=== PATIENT | male | born 1965 | race Caucasian/White ===

== ENCOUNTER 2017-08-21 18:02 | Inpatient (IN) | payer MEDICARE ==
[~2017-08-21] VITALS: Ht 185.4 cm; Wt 89.2 kg
[2017-08-21 18:05] VITALS: O2SAT 96
[2017-08-21] MEDS ORDERED: MIDAZOLAM HCL 5 MG/ML VIAL (1 ML) ONE (18:09)
[2017-08-21] MEDS ORDERED: ceFAZolin 2 GM PREMIX 50 ML ONE (18:09)
[2017-08-21] MEDS ORDERED: DIPHTH/TETANUS/ACEL PERTUSSIS (BOOSTER) 0.5 ML VIAL/PFS IM ONE (18:09)
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
[2017-08-21 18:38] LABS: AUTOMATED NEUTROPHIL # 18.8 TH/MM3 (1.8-7.7); BASOPHIL # 0.1 TH/MM3 (0-0.2); BASOPHIL % 0.6 % (0.0-2.0); EOSINOPHIL # 0.3 TH/MM3 (0-0.4); EOSINOPHIL % 1.3 % (0.0-4.0); HEMATOCRIT 44.7 % (39.0-51.0); LYMPH % 11.1 % (9.0-44.0); LYMPHOCYTE # 2.6 TH/MM3 (1.0-4.8); MEAN CELL VOLUME 89.2 FL (80.0-100.0); MEAN CORPUSCULAR HGB CONC 33.6 % (32.0-36.0); MEAN PLATELET VOLUME 7.1 FL (7.0-11.0); MONO % 6.3 % (0.0-8.0); MONOCYTE # 1.5 TH/MM3 (0-0.9); NEUT % 80.7 % (16.0-70.0); PLATELET COUNT 392 TH/MM3 (150-450); RED BLOOD COUNT 5.02 MIL/MM3 (4.50-5.90); RED CELL DISTRIBUTION WIDTH 13.4 % (11.6-17.2); WHITE BLOOD COUNT 23.3 TH/MM3 (4.0-11.0)
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
[2017-08-21 18:46] LABS: INTERNATIONAL NORMALIZED RATIO 1.1 RATIO
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
[2017-08-21] MEDS: SODIUM CHLOR 0.9% 1000 ML INJ 1,000 ML IV SCH (18:50)
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
[2017-08-21] MEDS ORDERED: SODIUM CHLORIDE 0.9% FLUSH 10 ML FLUSH IV FLUSH PRN (19:00)
[2017-08-21] MEDS ORDERED: NALOXONE HCL 0.4 MG/ML AMP IV PUSH PRN (19:00)
[2017-08-21] MEDS ORDERED: Post-op Orders (for Pharmacy) XX ONE (19:00)
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
[2017-08-21] MEDS ORDERED: IOHEXOL 350 MG/ML 10 ML VIAL (for RAD DIAG) IVCONTRAST ONE (19:48)
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
[2017-08-21 20:00] VITALS: BP 161/83; PULSE 109; RESP 24; TEMP 100.6; O2SAT 94
[2017-08-21] MEDS ORDERED: sotalol (20:20)
[2017-08-21] MEDS: PANTOPRAZOLE SODIUM 40 MG VIAL IV PUSH SCH (20:25)
[2017-08-21] MEDS: MORPHINE SULFATE 2 MG/ML SYRINGE IV PUSH PRN ×2 (20:25→22:59)
[2017-08-21] MEDS: SODIUM CHLORIDE 0.9% FLUSH 10 ML FLUSH IV FLUSH SCH (21:00)
[2017-08-21] MEDS ORDERED: ALPR.25 PO (21:20)
[2017-08-21] MEDS: ACETAMINOPHEN/HYDROcodone 325 MG/5 MG TAB PO PRN (21:49)
[2017-08-21 22:00] VITALS: PULSE 53
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
[2017-08-21] MEDS ORDERED: ASPI-516 CHEW (23:20)
[2017-08-21] MEDS ORDERED: SOTA120T PO (23:20)
[2017-08-22] VITALS (11 sets, daily range): BP systolic 136–186; BP diastolic 82–88; PULSE 75–108; RESP 15–23; TEMP 98–101.6; O2SAT 92–98
[2017-08-22] MEDS ORDERED: SILD20TA11 PO (01:14)
[2017-08-22] MEDS: ACETAMINOPHEN/HYDROcodone 325 MG/5 MG TAB PO PRN (02:18)
[2017-08-22] MEDS ORDERED: ACETAMINOPHEN 1000 MG/100 ML 100 ML IV PRN (03:00)
[2017-08-22 04:19] LABS: AUTOMATED NEUTROPHIL # 11.3 TH/MM3 (1.8-7.7); BASOPHIL # 0.1 TH/MM3 (0-0.2); BASOPHIL % 0.4 % (0.0-2.0); EOSINOPHIL # 0.1 TH/MM3 (0-0.4); EOSINOPHIL % 0.5 % (0.0-4.0); HEMOGLOBIN 14.6 GM/DL (13.0-17.0); LYMPH % 12.5 % (9.0-44.0); LYMPHOCYTE # 1.8 TH/MM3 (1.0-4.8); MEAN CORPUSCULAR HEMOGLOBIN 29.5 PG (27.0-34.0); MEAN CORPUSCULAR HGB CONC 33.9 % (32.0-36.0); MEAN PLATELET VOLUME 7.5 FL (7.0-11.0); MONO % 9.4 % (0.0-8.0); MONOCYTE # 1.4 TH/MM3 (0-0.9); NEUT % 77.2 % (16.0-70.0); PLATELET COUNT 340 TH/MM3 (150-450); RED BLOOD COUNT 4.94 MIL/MM3 (4.50-5.90); RED CELL DISTRIBUTION WIDTH 13.1 % (11.6-17.2); WHITE BLOOD COUNT 14.6 TH/MM3 (4.0-11.0)
[2017-08-22 04:41] LABS: ALBUMIN 2.6 GM/DL (3.4-5.0); BICARBONATE 25.2 MEQ/L (21.0-32.0); CALCIUM 7.7 MG/DL (8.5-10.1); CREATININE 0.76 MG/DL (0.60-1.30); DIRECT BILIRUBIN ADULT 0.2 MG/DL (0.0-0.2)
[2017-08-22 04:42] LABS: INDIRECT BILIRUBIN 0.6 MG/DL (0.0-0.8); TOTAL BILIRUBIN ADULT 0.8 MG/DL (0.2-1.0); TOTAL PROTEIN 6.4 GM/DL (6.4-8.2)
[2017-08-22] MEDS: MORPHINE SULFATE 2 MG/ML SYRINGE IV PUSH PRN (05:57)
[2017-08-22] MEDS ORDERED: ACETAMINOPHEN 650 MG/20.3 ML UDC PO PRN (07:27)
[2017-08-22] MEDS ORDERED: PILL SPLITTER OTHER PRN (07:30)
[2017-08-22] MEDS: METHOCARBAMOL 500 MG TAB PO SCH ×3 (08:13→20:44)
[2017-08-22] MEDS: SODIUM CHLORIDE 0.9% FLUSH 10 ML FLUSH IV FLUSH SCH ×2 (08:14→20:44)
[2017-08-22] MEDS: ASPIRIN 81 MG CHEW TAB CHEW SCH (08:14)
[2017-08-22] MEDS: SOTALOL HCL 80 MG TAB PO SCH ×2 (08:14→20:43)
[2017-08-22] MEDS: DOCUSATE SODIUM 50 MG/SENNA 8.6 MG TAB PO SCH ×2 (08:14→20:43)
[2017-08-22] MEDS: ACETAMINOPHEN 1000 MG/100 ML 100 ML IV SCH ×3 (08:14→20:44)
[2017-08-22] MEDS: BACITRACIN TOP OINT 15 GM TUBE TOP SCH ×2 (08:15→21:00)
[2017-08-22] MEDS: MORPHINE SULFATE 4 MG/ML INJ IV PUSH PRN ×4 (08:43→22:51)
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
[2017-08-22] MEDS: SODIUM CHLOR 0.9% 1000 ML INJ 1,000 ML IV SCH ×2 (11:45→14:50)
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
--- NOTE | 2017-08-22 18:04 | EKG ---
Date Performed: 08/22/2017 Time Performed: 11:54:32 PTAGE: 51 years EKG: SINUS TACHYCARDIA WITH OCCASIONAL VENTRICULAR PREMATURE COMPLEXES RIGHT BUNDLE BRANCH BLOCK ABNORMAL ECG NO PREVIOUS TRACING DOCTOR: Rupesh Polanco Interpretating Date/Time 08/22/2017 18:03:13
[2017-08-22] MEDS: ALPRAZolam 0.25 MG TAB PO PRN (18:08)
[2017-08-22] MEDS: PANTOPRAZOLE SODIUM 40 MG VIAL IV PUSH SCH (18:08)
[2017-08-22] MEDS ORDERED: POVIDONE IODINE 5% (ANTISEPSIS KIT) 4 APPLICATIONS EACH NARE PRN (22:30)
[2017-08-22] MEDS ORDERED: SODIUM CHLORID 0.9% 500 ML IV PRN (22:30)
[2017-08-22] MEDS ORDERED: LACTATED RINGER'S 1000 ML IV PRN (22:30)
[2017-08-22] MEDS ORDERED: CHLORHEXIDINE GLUCONATE 2 % 1 PACK (2 CLOTHS) TOPICAL PRN (22:30)
[2017-08-23] VITALS: BP 146/65; PULSE 76; RESP 18; TEMP 98.2; O2SAT 95
[2017-08-23] MEDS: ALPRAZolam 0.25 MG TAB PO PRN ×2 (01:26→23:09)
[2017-08-23] MEDS: MORPHINE SULFATE 4 MG/ML INJ IV PUSH PRN ×5 (01:55→20:37)
[2017-08-23] MEDS: ACETAMINOPHEN 1000 MG/100 ML 100 ML IV SCH (01:55)
[2017-08-23 04:00] VITALS: BP 127/64; PULSE 69; RESP 18; TEMP 97.3; O2SAT 96
[2017-08-23] MEDS: METHOCARBAMOL 500 MG TAB PO SCH ×3 (06:00→20:37)
[2017-08-23 08:00] VITALS: BP 153/72; PULSE 79; RESP 16; TEMP 98.3; O2SAT 97
[2017-08-23] MEDS: ASPIRIN 81 MG CHEW TAB CHEW SCH (08:49)
[2017-08-23] MEDS: SOTALOL HCL 80 MG TAB PO SCH ×2 (08:56→20:37)
[2017-08-23] MEDS: THIAMINE HCL 100 MG TAB PO SCH (09:00)
[2017-08-23] MEDS: BACITRACIN TOP OINT 15 GM TUBE TOP SCH (09:00)
[2017-08-23] MEDS: DOCUSATE SODIUM 50 MG/SENNA 8.6 MG TAB PO SCH ×2 (09:00→20:37)
[2017-08-23] MEDS: MULTIVITAMIN TAB PO SCH (09:00)
[2017-08-23] MEDS: FOLIC ACID 1 MG TAB PO SCH (09:00)
[2017-08-23] MEDS ORDERED: ARTIFICIAL TEARS OPTH OINT 3.5 APPLIC/3.5 GM TUBO ONE (09:29)
[2017-08-23] MEDS ORDERED: LIDOCAINE 1%/EPINEPHrine 1:100,000 SOLN 20 ML VIAL ONE (10:09)
[2017-08-23] MEDS ORDERED: POVIDONE IODINE 10% OINT 30 GM TUBE ONE (10:55)
--- NOTE | 2017-08-23 11:15 | HHI.PR ---
Immediate Post Op Note Procedure Date: August 23, 2017 Pre Op Diagnosis: (1) Laceration of ear, external, complicated Post Op Diagnosis: (1) Laceration of ear, external, complicated Surgeon: Kiersten Potter Floor Covering Printer Assistant(s): None Procedure: Excisional debridement of both external ears with complex closure, 10 cm on right and 5 cm on left. Anesthesia: General Drains: None Patient to: PACU Patient Condition: Good Date/Time of Procedure: SEE SURGICAL CARE RECORD Kiersten Potter MD August 23, 2017 11:15
[2017-08-23] MEDS ORDERED: MIDAZOLAM HCL 2 MG/2 ML VIAL ONE (11:47)
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
[2017-08-23] MEDS ORDERED: ceFAZolin INJ 1,000 MG VIAL IV ONE (12:00)
[2017-08-23] MEDS ORDERED: LACTATED RINGER'S 1000 ML INJ 2,000 ML IV ONE (12:00)
[2017-08-23] MEDS ORDERED: NEOSTIGMINE 5 MG/5 ML SYRINGE IV PUSH ONE (12:00)
[2017-08-23] MEDS ORDERED: LIDOCAINE HCL 1% PF 5 ML SYRINGE OTHER ONE (12:00)
[2017-08-23] MEDS ORDERED: DEXAMETHASONE SOD PHOS 4 MG/ML VIAL IV ONE (12:00)
[2017-08-23] MEDS ORDERED: PHENYLEPH/NS 1000 MCG/10 ML SYR IV ONE (12:00)
[2017-08-23] MEDS ORDERED: PROPOFOL 200 MG/20 ML AMP IV ONE (12:00)
[2017-08-23] MEDS ORDERED: ONDANSETRON HCL 4 MG/2 ML VIAL IV ONE (12:00)
[2017-08-23] MEDS ORDERED: GLYCOPYRROLATE 1 MG/5 ML SYRINGE IV PUSH ONE (12:00)
[2017-08-23] MEDS ORDERED: ROCURONIUM INJ 50 MG/5 ML SYRINGE IV PUSH ONE (12:00)
[2017-08-23] MEDS ORDERED: *morphine SULFATE 8 MG/ML PERIprocedure ONLY ONE (12:02)
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
[2017-08-23 12:41] VITALS: BP 118/74; PULSE 62; RESP 18; TEMP 98.6; O2SAT 92
--- NOTE | 2017-08-23 12:46 | RADRPT ---
EXAM DATE/TIME: 08/23/2017 10:54 [facility] COMPARISON: No previous studies available for comparison. INDICATIONS : ORIF left ankle. MEDICAL HISTORY : None. SURGICAL HISTORY : None. ENCOUNTER: Subsequent ACUITY: 3 days PAIN SCORE: Non-responsive. LOCATION: Left Ankle. FINDINGS: Plate is seen bridging fibular fracture. Cortical screws medial malleolus. Anatomic alignment. CONCLUSION: Anatomic alignment following ORIF ankle fracture. Marlon Ortega MD FACR on August 23, 2017 at 12:44 Board Certified Radiologist. This report was verified electronically.
[2017-08-23] MEDS: SODIUM CHLORIDE 0.9% FLUSH 10 ML FLUSH IV FLUSH SCH ×2 (13:31→20:37)
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
--- NOTE | 2017-08-23 16:38 | RADRPT ---
EXAM DATE/TIME: 08/23/2017 16:15 [place] COMPARISON: CT THORAX W CONTRAST, August 21, 2017, 18:31. INDICATIONS : Shoulder pain from previous SNF, 3 days ago. MEDICAL HISTORY : None. SURGICAL HISTORY : clavicle ORIF. ENCOUNTER: Subsequent ACUITY: 3 days PAIN SCORE: 5/10 LOCATION: Right shoulder FINDINGS: Previous right clavicle fracture. Anatomic alignment. Humerus is intact. 5.5 center mass right upp er lobe consistent with neoplasm. CONCLUSION: Negative for fracture. Marlon Ortega MD FACR on August 23, 2017 at 16:34 Board Certified Radiologist. This report was verified electronically.
[2017-08-23] MEDS: TAMSULOSIN HCL 0.4 MG CAP PO SCH (17:10)
[2017-08-23 20:03] VITALS: BP 135/79; PULSE 89; RESP 16; TEMP 98.1; O2SAT 92
[2017-08-23] MEDS: PANTOPRAZOLE SODIUM 40 MG VIAL IV PUSH SCH (20:08)
[2017-08-24] VITALS (7 sets, daily range): BP systolic 110–147; BP diastolic 61–79; PULSE 67–86; RESP 16–18; TEMP 97.7–98.6; O2SAT 93–96
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
[2017-08-24] MEDS: MORPHINE SULFATE 4 MG/ML INJ IV PUSH PRN ×3 (02:27→17:00)
[2017-08-24 04:09] LABS: AUTOMATED NEUTROPHIL # 14.1 TH/MM3 (1.8-7.7); BASOPHIL # 0.1 TH/MM3 (0-0.2); BASOPHIL % 0.5 % (0.0-2.0); HEMATOCRIT 40.5 % (39.0-51.0); HEMOGLOBIN 13.6 GM/DL (13.0-17.0); LYMPH % 6.4 % (9.0-44.0); MEAN CELL VOLUME 88.1 FL (80.0-100.0); MEAN CORPUSCULAR HEMOGLOBIN 29.5 PG (27.0-34.0); MEAN CORPUSCULAR HGB CONC 33.5 % (32.0-36.0); MEAN PLATELET VOLUME 7.5 FL (7.0-11.0); MONO % 6.1 % (0.0-8.0); PLATELET COUNT 349 TH/MM3 (150-450); RED CELL DISTRIBUTION WIDTH 13.1 % (11.6-17.2); WHITE BLOOD COUNT 16.2 TH/MM3 (4.0-11.0)
[2017-08-24] MEDS: METHOCARBAMOL 500 MG TAB PO SCH ×3 (04:26→21:24)
[2017-08-24] MEDS: ALPRAZolam 0.25 MG TAB PO PRN (04:26)
[2017-08-24 05:03] LABS: BICARBONATE 29.1 MEQ/L (21.0-32.0); CALCIUM 7.9 MG/DL (8.5-10.1); CREATININE 0.78 MG/DL (0.60-1.30)
--- NOTE | 2017-08-24 07:57 | PD.ORT.PN ---
Subjective Post Op Day #: 1 Pain Scale: 7 Subjective Remarks Left ankle pain appears to be controlled complaining of right shoulder pain seen bedside with mom Objective Vitals Vital Signs Date Time Temp Pulse Resp B/P (MAP) Pulse Ox O2 Delivery O2 Flow Rate FiO2 08/24/17 07:35 97.7 67 18 142/68 (92) 96 08/24/17 04:00 97.7 80 16 144/65 (91) 95 08/24/17 00:30 97.9 75 17 110/61 (77) 93 08/23/17 20:03 98.1 89 16 135/79 (97) 92 08/23/17 18:55 Room Air 08/23/17 12:41 98.6 62 18 118/74 (89) 92 08/23/17 12:30 98.5 71 16 120/73 (89) 95 Nasal Cannula 3 08/23/17 12:15 70 15 123/71 (88) 94 Nasal Cannula 3 08/23/17 12:00 69 15 128/70 (89) 93 Nasal Cannula 3 08/23/17 11:45 68 16 138/72 (94) 94 Nasal Cannula 3 08/23/17 11:40 99.0 79 18 142/73 (96) 100 Simple Mask 8 08/23/17 08:00 98.3 79 16 153/72 (99) 97 I/O 08/23/17 08/23/17 08/23/17 08/24/17 08/24/17 08/24/17 07:00 15:00 23:00 07:00 15:00 23:00 Intake Total 100 ml 2250 ml 720 ml Output Total 1000 ml 3500 ml 1800 ml Balance -900 ml -1250 ml -1080 ml Intake Oral 0 ml 250 ml 720 ml IV Total 100 ml Other 2000 ml Output Urine Total 1000 ml 3475 ml 1800 ml Estimated Blood Loss 25 ml # Bowel Movements 0 0 Result Diagram: 08/24/17 0354 08/24/17 0354 Other Results Last 72 hours Impressions Shoulder X-Ray 08/23/17 0000 Signed Impressions: Service Date/Time: Wednesday, August 23, 2017 16:15 - CONCLUSION: Negative for fracture. Marlon Ortega MD FACR Ankle X-Ray 08/23/17 0000 Signed Impressions: Service Date/Time: Wednesday, August 23, 2017 10:54 - CONCLUSION: Anatomic alignment following ORIF ankle fracture. Marlon Ortega MD FACR Thoracic Spine CT 08/21/171821 Signed Impressions: Service Date/Time: Monday, August 21, 2017 18:31 - CONCLUSION: 1. Right upper lobe pulmonary mass described in the CT of the thorax report. 2. No fracture or dislocation involving the thoracic spine. Prince Felipe Jr., MD Pelvis X-Ray 08/21/171821 Signed Impressions: Service Date/Time: Monday, August 21, 2017 18:16 - CONCLUSION: 1. Questionable left femoral neck fracture. See the CT of the abdomen and pelvis. 2. Right hip prosthesis. Prince Felipe Jr., MD Maxillofacial CT 08/21/171821 Signed Impressions: Service Date/Time: Monday, August 21, 2017 18:23 - CONCLUSION: 1. Left frontal and right orbital soft tissue swelling. 2. Radiopaque foreign body involving the left frontal soft tissues. 3. Old trauma to the mandible. Prince Felipe Jr., MD Lumbar Spine CT 08/21/171821 Signed Impressions: Service Date/Time: Monday, August 21, 2017 18:31 - CONCLUSION: 1. No fracture or dislocation. Prince Felipe Jr., MD Head CT 08/21/171821 Signed Impressions: Service Date/Time: Monday, August 21, 2017 18:23 - CONCLUSION: 1. See the CT of the facial bones report separately. 2. No acute intracranial abnormality. Prince Felipe Jr., MD Chest X-Ray 08/21/171821 Signed Impressions: Service Date/Time: Monday, August 21, 2017 18:16 - CONCLUSION: 1. 9.5 cm masslike density within the right upper lobe. CT of the thorax is needed to further evaluate. Prince Felipe Jr., MD Chest CT 08/21/171821 Signed Impressions: Service Date/Time: Monday, August 21, 2017 18:31 - CONCLUSION: 1. Right upper lobe pulmonary mass worrisome for a primary bronchogenic carcinoma. 2. No CT evidence to suggest acute trauma. Prince Felipe Jr., MD Cervical Spine CT 08/21/171821 Signed Impressions: Service Date/Time: Monday, August 21, 2017 18:23 - CONCLUSION: 1. No fracture or dislocation. 2. Degenerative changes as detailed above. Prince Felipe Jr., MD Abdomen/Pelvis CT 08/21/17 1822 Signed Impressions: Service Date/Time: Monday, August 21, 2017 18:31 - CONCLUSION: No acute disease. Prince Felipe Jr., MD Laboratory Tests Test 08/24/17 03:54 White Blood Count 16.2 TH/MM3 Neutrophils (%) (Auto) 87.0 % Lymphocytes (%) (Auto) 6.4 % Neutrophils # (Auto) 14.1 TH/MM3 Monocytes # (Auto) 1.0 TH/MM3 Random Glucose 170 MG/DL Calcium Level 7.9 MG/DL Objective Remarks Alert and oriented male nonlabored respirations bandages of the upper extremities. Left lower extremity: Splint intact no strikethrough, capillary fill time to digits within normal limits, foot is warm, calf nontender nondistended, sensation intact to the digits, splint intact ankle with good alignment Right lower extremity: No complaints no swelling within normal limits Assessment & Plan Ortho Post Op Day #: 1 Problem List: (1) Bimalleolar ankle fracture ICD Codes: S82.843A - Displaced bimalleolar fracture of unspecified lower leg, initial encounter for closed fracture Status: Acute Qualifiers: Qualified Codes: S82.842D - Displaced bimalleolar fracture of left lower leg , subsequent encounter for closed fracture with routine healing Assessment and Plan Postop per Dr. Remy. Pain appears to be well controlled. Reviewed notes. Okay to proceed with Lovenox once cleared after biopsy. Will change bandage tomorrow, wound check. Moseley remains in. Will leave trauma team to evaluate further right shoulder if needed. Okay to start PT-nonweightbearing left lower extremity once upper extremity cleared per trauma Onel Hooks DPM August 24, 2017 07:57
[2017-08-24] MEDS: SOTALOL HCL 80 MG TAB PO SCH ×2 (08:08→21:25)
[2017-08-24] MEDS: TAMSULOSIN HCL 0.4 MG CAP PO SCH (08:08)
[2017-08-24] MEDS: FOLIC ACID 1 MG TAB PO SCH (08:08)
[2017-08-24] MEDS: DOCUSATE SODIUM 50 MG/SENNA 8.6 MG TAB PO SCH ×2 (08:08→21:24)
[2017-08-24] MEDS: THIAMINE HCL 100 MG TAB PO SCH (08:09)
[2017-08-24] MEDS: MULTIVITAMIN TAB PO SCH (08:09)
[2017-08-24] MEDS: SODIUM CHLORIDE 0.9% FLUSH 10 ML FLUSH IV FLUSH SCH ×2 (08:13→21:23)
[2017-08-24] MEDS: BACITRACIN TOP OINT 15 GM TUBE TOP SCH ×2 (08:14→21:33)
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
[2017-08-24] MEDS: ceFAZolin 2 GM PREMIX 50 ML IV SCH ×2 (10:53→17:02)
[2017-08-24] MEDS: MAGNESIUM HYDROXIDE SUSP 30 ML CUP PO SCH ×2 (10:53→21:24)
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
[2017-08-24] MEDS ORDERED: LORazepam 2 MG/ML VIAL ONE (13:29)
--- NOTE | 2017-08-24 14:44 | PD.RAD ---
Post CT Procedure Prog Note Pre Procedure Diagnosis: (1) Mass of upper lobe of right lung Post Procedure Diagnosis: (1) Mass of upper lobe of right lung Procedure Date: August 24, 2017 Supervising Radiologist: Ian Ortega Estimated blood loss: none Anesthesia: Local, Analgesia Plan of Activity Patient to Unit: Nursing Unit Patient Condition: Fair Additional Comments: CT guided right lung biopsy completed. 3 20 ga core samples obtained. Tiny (1mm) localized area of pneumothorax on follow up CT CXR pending for 1500hours See PACS Report for procedural detail/treatment Ian Ortega MD August 24, 2017 14:44
[2017-08-24] MEDS ORDERED: oxyCODONE/ACETAMINOPHEN 5 MG/325 MG TAB PO PRN (14:45)
[2017-08-24] MEDS ORDERED: LIDOCAINE HCL 1% 20 ML VIAL SQ ONE (15:04)
--- NOTE | 2017-08-24 15:36 | RADRPT ---
EXAM DATE/TIME: 08/24/2017 14:18 [facility] COMPARISON: CT THORAX W CONTRAST, August 21, 2017, 18:31. INDICATIONS : Right upper lobe lung mass BIOPSY SITE: Right Lung MEDICATION(S): 1.) 100 mcg fentanyl (Sublimaze) IV 2.) 2 mg lorazepam (Ativan) DEVICE(S): 1.) 20 gauge Temno core biopsy needle MEDICAL HISTORY : Hypertension. SURGICAL HISTORY : None. ENCOUNTER: Initial ACUITY: 1 day PAIN SCORE: 0/10 LOCATION: Right Lung A total of three core specimen(s) were obtained and sent to the laboratory for pathologic evaluation. PROCEDURE: 1. CT guided lung biopsy. 3. EKG and oximetry remained stable throughout the procedure. Prior to the procedure informed consent was obtained. Any appropriate prior imaging studies were rev iewed. Using automated exposure control and adjustment of the mA and/or kV according to patient size, radiation dose was kept as low as reasonably achievable to obtain optimal diagnostic quality images. DICOM format image data is available electronically for review and comparison. The site was prepped in a sterile fashion. Full sterile technique was used, including cap, mask, dio rile gloves and gown and a large sterile sheet. Hand hygiene and 2% chlorhexidine and/or betadine/al cohol prep was utilized per protocol for cutaneous antisepsis. The skin and subcutaneous tissues wer e infiltrated with local anesthetic solution. With CT guidance the previously identified right apical mass was localized. A 19 gauge cannula was ad vanced through the skin and into the right apical mass. A total of 3 core biopsies were performed wit h a 20 gauge Temno biopsy gun. Position was confirmed within the lesion. Follow-up CT scan reveals a tiny localized pneumothorax measuring only approximately 1-2 mm in size. Chest x-ray is pending. Conscious sedation was performed with the prescribed dosages and duration as above in the presence of an independent trained radiology nurse to assist in the monitoring of the patient. EKG and oximetry remained stable throughout the procedure. The patient tolerated the procedure well and there were no complications. The patient was sent to Radiology Outpatient Unit in stable condition. CONCLUSION: Uncomplicated CT guided biopsy. Ian Ortega MD on August 24, 2017 at 15:32 Board Certified Radiologist. This report was verified electronically.
--- NOTE | 2017-08-24 16:11 | RADRPT ---
EXAM DATE/TIME: 08/24/2017 15:53 [facility] COMPARISON: CT NEEDLE BIOPSY LUNG, RIGHT, August 24, 2017, 14:18. INDICATIONS : Post right lung biopsy MEDICAL HISTORY : Right lung mass SURGICAL HISTORY : ENCOUNTER: Initial ACUITY: 1 day PAIN SCORE: 0/10 LOCATION: Right chest FINDINGS: A single frontal expiratory view of the chest was performed. Redemonstration of a large right upper l obe lung mass. Stable subtle localized pneumothorax. The cardio-mediastinal contours and bronchopulmonary markings are unremarkable for an expiratory exam . Osseous structures are intact. CONCLUSION: 1. Stable subtle localized pneumothorax status post biopsy of large right upper lobe lung mass. Felix Traore MD on August 24, 2017 at 16:05 Board Certified Radiologist. This report was verified electronically.
[2017-08-24] MEDS: PANTOPRAZOLE SODIUM 40 MG VIAL IV PUSH SCH (21:31)
[2017-08-25 00:37] VITALS: BP 122/69; PULSE 66; RESP 18; TEMP 98.3; O2SAT 96
[2017-08-25] MEDS: ceFAZolin 2 GM PREMIX 50 ML IV SCH (01:00)
[2017-08-25 04:54] VITALS: BP 129/78; PULSE 66; RESP 18; TEMP 98.4; O2SAT 96
[2017-08-25] MEDS: METHOCARBAMOL 500 MG TAB PO SCH ×3 (04:57→21:53)
[2017-08-25 07:59] VITALS: BP 131/80; PULSE 67; RESP 17; TEMP 97.4; O2SAT 94
[2017-08-25] MEDS: MAGNESIUM HYDROXIDE SUSP 30 ML CUP PO SCH ×3 (09:00→20:22)
[2017-08-25] MEDS: DOCUSATE SODIUM 50 MG/SENNA 8.6 MG TAB PO SCH ×3 (09:00→20:22)
[2017-08-25] MEDS: MULTIVITAMIN TAB PO SCH (09:02)
[2017-08-25] MEDS: THIAMINE HCL 100 MG TAB PO SCH (09:02)
[2017-08-25] MEDS: TAMSULOSIN HCL 0.4 MG CAP PO SCH (09:02)
[2017-08-25] MEDS: FOLIC ACID 1 MG TAB PO SCH (09:02)
[2017-08-25] MEDS: SOTALOL HCL 80 MG TAB PO SCH ×2 (09:02→20:22)
[2017-08-25] MEDS: BACITRACIN TOP OINT 15 GM TUBE TOP SCH ×2 (09:03→20:26)
[2017-08-25] MEDS: SODIUM CHLORIDE 0.9% FLUSH 10 ML FLUSH IV FLUSH SCH ×2 (09:03→20:26)
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
--- NOTE | 2017-08-25 11:42 | ECHRPT ---
Indication: a fib CONCLUSIONS Trace mitral valve regurgitation. There is mild tricuspid valve regurgitation. The estimated pulmonary arterial pressure is 44.3 mmHg. Trace mitral valve regurgitation. There is mild tricuspid valve regurgitation. The estimated pulmonary arterial pressure is 44.3 mmHg. The inferior vena cava is dilated. BP: 142 / 68 HR: 67 Rhythm: MEASUREMENTS (Male / Female) Normal Values Technical Quality: 2D ECHO LV Diastolic Diameter PLAX 4.4 cm 4.2 - 5.9 / 3.9 - 5.3 cm LV Systolic Diameter PLAX 3.1 cm IVS Diastolic Thickness 1.2 cm 0.6 - 1.0 / 0.6 - 0.9 cm LVPW Diastolic Thickness 1.3 cm 0.6 - 1.0 / 0.6 - 0.9 cm LV Relative Wall Thickness 0.6 RV Internal Dim ED PLAX 2.6 cm M-MODE Aortic Root Diameter MM 3.6 cm LA Systolic Diameter MM 3.5 cm LA Ao Ratio MM 1.0 AV Cusp Separation MM 2.1 cm DOPPLER Mitral E Point Velocity 103.0 cm/s Mitral A Point Velocity 72.4 cm/s Mitral E to A Ratio 1.4 LV E' Lateral Velocity 14.9 cm/s Mitral E to LV E' Lateral Ratio 6.9 TR Peak Velocity 293.0 cm/s TR Peak Gradient 34.3 mmHg Right Atrial Pressure 10.0 mmHg Pulmonary Artery Systolic Pressu 44.3 mmHg Right Ventricular Systolic Press 44.3 mmHg FINDINGS LEFT VENTRICLE Normal left ventricular size and wall thickness. The left ventricular systolic function is normal wi th an estimated ejection fraction in the range of 60-65%. Left ventricular diastolic function parameters a re normal. RIGHT VENTRICLE Normal right ventricular size and systolic function. LEFT ATRIUM The left atrial size is normal. RIGHT ATRIUM The right atrial size is normal. ATRIAL SEPTUM Normal atrial septal thickness without atrial level shunting by limited color doppler interrogation. AORTA The aortic root and proximal ascending aorta are normal in size on limited imaging. MITRAL VALVE Structurally normal mitral valve. No mitral valve stenosis. Trace mitral valve regurgitation. AORTIC VALVE Trileaflet aortic valve. No aortic valve stenosis or regurgitation. TRICUSPID VALVE Structurally normal tricuspid valve. No tricuspid valve stenosis There is mild tricuspid valve regurgitation. The estimated pulmonary arterial pressure is 44.3 mmHg. PULMONARY VALVE No pulmonary valve regurgitation or stenosis. VESSELS The inferior vena cava is dilated. PERICARDIUM No pericardial effusion. Enio Jorgensen MD, FACC (Electronically Signed) Final Date:25 Aug 2017 11:40
[2017-08-25 12:02] VITALS: BP 141/72; PULSE 66; RESP 18; TEMP 98.3; O2SAT 95
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
[2017-08-25] MEDS ORDERED: PERI PO (13:25)
[2017-08-25] MEDS ORDERED: MAGN30S PO (13:25)
[2017-08-25] MEDS: ENOXAPARIN SODIUM 40 MG/0.4 ML SYRINGE SQ SCH (15:00)
--- NOTE | 2017-08-25 15:09 | PD.POD ---
Subjective Pain score: 5 Remarks Ankle pain improving shoulder pain continues Past Med/Surg/Social History Social History Smoking Status: Current Every Day Smoker Objective Vital Signs Vital Signs Date Time Temp Pulse Resp B/P (MAP) Pulse Ox O2 Delivery O2 Flow Rate FiO2 08/25/17 12:02 98.3 66 18 141/72 (95) 95 08/25/17 08:30 Room Air 08/25/17 07:59 97.4 67 17 131/80 (97) 94 08/25/17 04:54 98.4 66 18 129/78 (95) 96 08/25/17 00:37 98.3 66 18 122/69 (86) 96 08/24/17 20:00 86 18 147/79 (101) 95 08/24/17 16:27 98.6 80 18 129/75 (93) 94 Coded Allergies: NSAIDS (Non-Steroidal Anti-Inflamma (Verified Adverse Reaction, Unknown, "allergic- heart races out of my chest" , 08/21/17) Medications and IVs Administered Medications Medications (Trade) Dose Ordered Sig/Amisha Route PRN Reason Start Time Stop Time Status Last Admin Dose Admin Sodium Chloride (NS Flush) 2 ml BID IV FLUSH 08/21/17 21:00 08/25/17 09:03 Pantoprazole Sodium (Protonix Inj) 40 mg Q24H IV PUSH 08/21/17 19:00 08/24/17 21:31 Bacitracin (Baciguent Oint) 1 applic Q12HR TOP 08/22/17 09:00 08/25/17 09:03 Morphine Sulfate (Morphine Inj) 4 mg Q3H PRN IV PUSH Breakthrough pain 08/22/17 07:15 08/24/17 17:00 Oxycodone HCl (Roxicodone) 10 mg Q4H PRN PO Pain 6-10 08/22/17 07:15 08/25/17 10:52 Methocarbamol (Robaxin) 500 mg Q8HR PO 08/22/17 07:15 08/25/17 13:20 Senna/Docusate Sodium (Annia-Colace) 2 tab BID PO 08/22/17 09:00 08/24/17 21:24 Alprazolam (Xanax) 0.25 mg Q6H PRN PO ANXIETY 08/22/17 07:15 08/24/17 04:26 Aspirin (Aspirin Chew) 81 mg DAILY CHEW 08/22/17 09:00 Future Hold 08/22/17 08:14 Sotalol HCl (Betapace) 120 mg BID PO 08/22/17 09:00 08/25/17 09:02 Miscellaneous (Pill Splitter) 1 ea UNSCH PRN OTHER SEE LABEL COMMENTS 08/22/17 07:30 08/24/17 21:32 Lactated Ringer's 1,000 ml @ 30 mls/hr Q24H PRN IV SEE LABEL COMMENTS 08/22/17 22:30 08/25/17 22:29 08/23/17 01:28 Folic Acid (Folate) 1 mg DAILY PO 08/23/17 09:00 08/25/17 09:02 Multivitamins (Theragran) 1 tab DAILY PO 08/23/17 09:00 08/25/17 09:02 Thiamine HCl (Vitamin B1) 100 mg DAILY PO 08/23/17 09:00 08/25/17 09:02 Tamsulosin HCl (Flomax) 0.4 mg DAILY PO 08/23/17 15:30 08/25/17 09:02 Magnesium Hydroxide (Milk Of Akila Liniecy) 30 ml BID PO 08/24/17 09:00 08/24/17 21:24 Other Results Laboratory Tests Test 08/24/17 03:54 White Blood Count 16.2 TH/MM3 Red Blood Count 4.60 MIL/MM3 Hemoglobin 13.6 GM/DL Hematocrit 40.5 % Mean Corpuscular Volume 88.1 FL Mean Corpuscular Hemoglobin 29.5 PG Mean Corpuscular Hemoglobin Concent 33.5 % Red Cell Distribution Width 13.1 % Platelet Count 349 TH/MM3 Mean Platelet Volume 7.5 FL Neutrophils (%) (Auto) 87.0 % Lymphocytes (%) (Auto) 6.4 % Monocytes (%) (Auto) 6.1 % Eosinophils (%) (Auto) 0.0 % Basophils (%) (Auto) 0.5 % Neutrophils # (Auto) 14.1 TH/MM3 Lymphocytes # (Auto) 1.0 TH/MM3 Monocytes # (Auto) 1.0 TH/MM3 Eosinophils # (Auto) 0.0 TH/MM3 Basophils # (Auto) 0.1 TH/MM3 CBC Comment DIFF FINAL Differential Comment Laboratory Tests Test 08/24/17 03:54 Blood Urea Nitrogen 8 MG/DL Creatinine 0.78 MG/DL Random Glucose 170 MG/DL Calcium Level 7.9 MG/DL Sodium Level 139 MEQ/L Potassium Level 3.9 MEQ/L Chloride Level 104 MEQ/L Carbon Dioxide Level 29.1 MEQ/L Anion Gap 6 MEQ/L Estimat Glomerular Filtration Rate 104 ML/MIN Exam-Podiatry Remarks Left ankle: medial and lateral incision with adi intact dried blood no SOI, moderate edema, good ankle alignment, sensation intact, BL calf nontender nondistended. Physical Exam General appearance: comfortable, uncomfortable Nutritional status: normal Orientation: alert and oriented x3 Assessment & Plan Diagnosis: (1) Bimalleolar ankle fracture ICD Codes: S82.843A - Displaced bimalleolar fracture of unspecified lower leg, initial encounter for closed fracture Status: Acute A/P Post Op day 2, bandage and splint changed, doing well. Ok to Fu out pt at this point once other medical issues are stable for DC. Ok to start Lovenox from my standpoint, lung bx?. Non weight bearing left LE, next bandage changed 7-10 for staple removal and cast outpt with Dr Remy. Problem Qualifiers (1) Bimalleolar ankle fracture: Onel Hooks DPM August 25, 2017 15:09
[2017-08-25 16:14] VITALS: BP 146/72; PULSE 64; RESP 18; TEMP 98.4; O2SAT 96
[2017-08-25] MEDS: PANTOPRAZOLE SODIUM 40 MG VIAL IV PUSH SCH (18:00)
[2017-08-25] MEDS ORDERED: ZOLPIDEM TARTRATE 5 MG TAB PO PRN (18:45)
[2017-08-25] MEDS ORDERED: oxyCODONE/ACETAMINOPHEN 5 MG/325 MG TAB PO PRN (18:45)
[2017-08-25] MEDS ORDERED: BISACODYL 10 MG SUPP RECTAL PRN (18:45)
[2017-08-25] MEDS ORDERED: ENOXAPARIN SODIUM 40 MG/0.4 ML SYRINGE SQ SCH (18:45)
[2017-08-25] MEDS ORDERED: HYDROmorphone HCL PF 2 MG/ML VIAL IV PUSH PRN (18:45)
[2017-08-25] MEDS ORDERED: LACTULOSE SYRUP 20 GM/30 ML CUP PO PRN (18:45)
[2017-08-25] MEDS ORDERED: Post-op Orders (for Pharmacy) XX ONE (18:45)
[2017-08-25 20:00] VITALS: BP 151/72; PULSE 73; RESP 18; TEMP 98.4; O2SAT 94
[2017-08-26 00:12] VITALS: BP 134/62; PULSE 68; RESP 18; TEMP 98.3; O2SAT 95
[2017-08-26 04:15] VITALS: BP 136/74; PULSE 62; RESP 18; TEMP 98.2; O2SAT 95
[2017-08-26] MEDS: METHOCARBAMOL 500 MG TAB PO SCH ×3 (05:54→21:40)
--- NOTE | 2017-08-26 06:29 | RADRPT ---
EXAM DATE/TIME: 08/26/2017 05:38 [facility] COMPARISON: CT THORAX W CONTRAST, August 21, 2017, 18:31. CHEST SINGLE AP, August 21, 2017, 18:16. INDICATIONS : Shortness of breath. MEDICAL HISTORY : Hypertension. Right lung mass SURGICAL HISTORY : ORIF bilat clavicles ENCOUNTER: Subsequent ACUITY: 4 - 6 days PAIN SCORE: 4/10 LOCATION: Bilateral chest FINDINGS: Again seen is a bilobed right upper lobe pulmonary mass grossly unchanged in the prior study. This yanez s been previously evaluated with CT. Remaining aspects of the lungs are clear. No effusions. Heart is normal in size. Bilateral clavicular orthopedic plates. Scoliotic curvature. CONCLUSION: Grossly unchanged right upper lobe pulmonary mass. Clear lungs otherwise. Prince Felipe Jr., MD on August 26, 2017 at 6:25 Board Certified Radiologist. This report was verified electronically.
[2017-08-26 08:00] VITALS: BP 151/80; PULSE 63; RESP 16; TEMP 98; O2SAT 95
[2017-08-26] MEDS: DOCUSATE SODIUM 50 MG/SENNA 8.6 MG TAB PO SCH ×2 (09:00→21:00)
[2017-08-26] MEDS: MAGNESIUM HYDROXIDE SUSP 30 ML CUP PO SCH ×2 (09:00→21:00)
[2017-08-26] MEDS: SOTALOL HCL 80 MG TAB PO SCH ×2 (09:02→21:40)
[2017-08-26] MEDS: TAMSULOSIN HCL 0.4 MG CAP PO SCH (09:02)
[2017-08-26] MEDS: THIAMINE HCL 100 MG TAB PO SCH (09:02)
[2017-08-26] MEDS: MULTIVITAMIN TAB PO SCH (09:02)
[2017-08-26] MEDS: FOLIC ACID 1 MG TAB PO SCH (09:03)
[2017-08-26 12:00] VITALS: BP 134/70; PULSE 65; RESP 16; TEMP 98.1; O2SAT 94
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
[2017-08-26] MEDS: ENOXAPARIN SODIUM 40 MG/0.4 ML SYRINGE SQ SCH (14:57)
[2017-08-26 16:00] VITALS: BP 173/81; PULSE 73; RESP 16; TEMP 98.1; O2SAT 93
[2017-08-26 20:00] VITALS: BP 144/89; PULSE 86; RESP 21; TEMP 97.6; O2SAT 95
[2017-08-26] MEDS: BACITRACIN TOP OINT 15 GM TUBE TOP SCH (21:00)
[2017-08-26] MEDS: SODIUM CHLORIDE 0.9% FLUSH 10 ML FLUSH IV FLUSH SCH (21:42)
[2017-08-27] VITALS: BP 120/72; PULSE 70; RESP 22; TEMP 98.5; O2SAT 98
[2017-08-27] MEDS: METHOCARBAMOL 500 MG TAB PO SCH ×3 (06:02→21:26)
[2017-08-27 08:00] VITALS: BP 123/76; PULSE 72; RESP 18; TEMP 97.8; O2SAT 95
[2017-08-27] MEDS: SOTALOL HCL 80 MG TAB PO SCH ×2 (08:34→21:26)
[2017-08-27] MEDS: MULTIVITAMIN TAB PO SCH (08:34)
[2017-08-27] MEDS: TAMSULOSIN HCL 0.4 MG CAP PO SCH (08:34)
[2017-08-27] MEDS: THIAMINE HCL 100 MG TAB PO SCH (08:34)
[2017-08-27] MEDS: FOLIC ACID 1 MG TAB PO SCH (08:34)
[2017-08-27] MEDS: MAGNESIUM HYDROXIDE SUSP 30 ML CUP PO SCH ×2 (08:36→21:00)
[2017-08-27] MEDS: BACITRACIN TOP OINT 15 GM TUBE TOP SCH ×2 (08:36→21:28)
[2017-08-27] MEDS: SODIUM CHLORIDE 0.9% FLUSH 10 ML FLUSH IV FLUSH SCH ×2 (08:36→21:28)
[2017-08-27] MEDS: DOCUSATE SODIUM 50 MG/SENNA 8.6 MG TAB PO SCH ×2 (08:36→21:26)
[2017-08-27] MEDS ORDERED: fentaNYL 50 MCG/HR PATCH T-DERMAL SCH (11:00)
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
[2017-08-27 12:00] VITALS: BP 155/67; PULSE 66; RESP 18; TEMP 97.9; O2SAT 95
--- NOTE | 2017-08-27 14:56 | PD.PLAS.PN ---
Subjective Remarks The patient has no complaints regarding his ears. Vital Signs Date Time Temp Pulse Resp B/P (MAP) Pulse Ox O2 Delivery O2 Flow Rate FiO2 08/27/17 12:00 97.9 66 18 155/67 (96) 95 08/27/17 08:00 97.8 72 18 123/76 (92) 95 08/27/17 00:00 98.5 70 22 120/72 (88) 98 08/26/17 20:00 97.6 86 21 144/89 (107) 95 08/26/17 16:00 98.1 73 16 173/81 (111) 93 I/O 08/26/17 08/26/17 08/26/17 08/27/17 08/27/17 08/27/17 07:00 15:00 23:00 07:00 15:00 23:00 Intake Total 520 ml 600 ml 100 ml 900 ml Output Total 600 ml 900 ml Balance -80 ml 600 ml 100 ml 0 ml Intake Oral 520 ml 600 ml 900 ml IV Total 100 ml Output Urine Total 600 ml 900 ml # Voids 4 # Bowel Movements 0 0 Result Diagram: 08/24/17 0354 08/24/17 0354 Exam Findings POD# 4: The ears are healing well without any signs of infection. Plan Impression: The patient's ears are healing well. Plan: Wound care on a daily basis using povidone-iodine ointment. The patient may get his face, ears and hair wet for daily cleansing. Suture removal next week. No dressing is necessary for the ears. Kiersten Potter MD August 27, 2017 14:56
[2017-08-27 16:00] VITALS: BP 150/64; PULSE 72; RESP 18; TEMP 97.5; O2SAT 95
[2017-08-27] MEDS ORDERED: WALKER/FOLDING1 MIS (16:03)
[2017-08-27] MEDS ORDERED: WHEEMIS3 (16:03)
[2017-08-27] MEDS ORDERED: TAMS5CAP PO (16:06)
[2017-08-27] MEDS ORDERED: LACTULOSE SYRUP 20 GM/30 ML CUP PO ONE (16:15)
[2017-08-27] MEDS: ENOXAPARIN SODIUM 40 MG/0.4 ML SYRINGE SQ SCH (16:47)
[2017-08-27 20:05] VITALS: BP 155/80; PULSE 87; RESP 16; TEMP 98.3; O2SAT 95
[2017-08-27] MEDS: ALPRAZolam 0.25 MG TAB PO PRN (22:15)
[2017-08-28 00:10] VITALS: BP 130/64; PULSE 70; RESP 16; TEMP 98.2; O2SAT 97
[2017-08-28] MEDS: METHOCARBAMOL 500 MG TAB PO SCH ×2 (05:40→09:00)
[2017-08-28 08:00] VITALS: BP 133/63; PULSE 79; RESP 18; TEMP 98.1; O2SAT 95
[2017-08-28] MEDS: BACITRACIN TOP OINT 15 GM TUBE TOP SCH (09:00)
[2017-08-28] MEDS: SODIUM CHLORIDE 0.9% FLUSH 10 ML FLUSH IV FLUSH SCH (09:00)
[2017-08-28] MEDS: ASPIRIN 81 MG CHEW TAB CHEW SCH (09:00)
[2017-08-28] MEDS: SOTALOL HCL 80 MG TAB PO SCH (09:00)
[2017-08-28] MEDS: MAGNESIUM HYDROXIDE SUSP 30 ML CUP PO SCH (09:00)
[2017-08-28] MEDS ORDERED: POVIDONE IODINE 10% OINT 30 GM TUBE TOPICAL SCH (09:00)
[2017-08-28] MEDS: TAMSULOSIN HCL 0.4 MG CAP PO SCH (10:24)
[2017-08-28] MEDS: DOCUSATE SODIUM 50 MG/SENNA 8.6 MG TAB PO SCH (10:24)
[2017-08-28] MEDS: FOLIC ACID 1 MG TAB PO SCH (10:24)
[2017-08-28] MEDS: MULTIVITAMIN TAB PO SCH (10:24)
[2017-08-28] MEDS: THIAMINE HCL 100 MG TAB PO SCH (10:24)
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
[2017-08-28] MEDS ORDERED: METH500T3 PO (11:40)
[2017-08-28] MEDS ORDERED: PERC10TA27 PO (11:40)
[2017-08-28] MEDS ORDERED: diphenhydrAMINE HCL 25 MG CAP PO ONE (11:45)
[2017-08-28 12:00] VITALS: BP 150/66; PULSE 70; RESP 18; TEMP 98; O2SAT 94
[2017-08-28] MEDS: ENOXAPARIN SODIUM 40 MG/0.4 ML SYRINGE SQ SCH (14:27)
[2017-08-28] MEDS ORDERED: ENOX40P SQ (14:40)
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
[2017-08-28 16:00] VITALS: BP 175/89; PULSE 85; RESP 18; TEMP 98.1; O2SAT 96
[2017-08-28] MEDS: ALPRAZolam 0.25 MG TAB PO PRN (18:28)
[2017-08-30] MEDS ORDERED: REMOVE OLD DURAGESIC (FENTANYL) PATCH T-DERMAL SCH (11:00)
== END 2017-08-28 19:18 | disposition home health service (06) | DRG 493 ==
LOC: NEPI 18:02 → NEDA 19:11 → EDBD 19:11 → N03A 20:11 → N06B 08-22 16:19
PROVIDERS: ADMIT Surgery; ATTEND Surgery
PROC: 09B1XZZ Excision of Left External Ear, External Approach (ICD-10-PCS; 2017-08-23)
PROC: 09B0XZZ Excision of Right External Ear, External Approach (ICD-10-PCS; 2017-08-23)
PROC: 0QSK04Z Reposition Left Fibula with Internal Fixation Device, Open Approach (ICD-10-PCS; principal; 2017-08-23 09:32)
PROC: 0QSH04Z Reposition Left Tibia with Internal Fixation Device, Open Approach (ICD-10-PCS; 2017-08-23 09:32)
PROC: 0BBC3ZX Excision of Right Upper Lung Lobe, Percutaneous Approach, Diagnostic (ICD-10-PCS; 2017-08-24)
PROC: 0SSGXZZ Reposition Left Ankle Joint, External Approach (ICD-10-PCS; 2017-08-24)
DX: S82.842A Displaced bimalleolar fracture of left lower leg, initial encounter for closed fracture (principal); J95.811 Postprocedural pneumothorax; S06.0X9A Concussion with loss of consciousness of unspecified duration, initial encounter; I10 Essential (primary) hypertension; R00.1 Bradycardia, unspecified; I48.91 Unspecified atrial fibrillation; F17.210 Nicotine dependence, cigarettes, uncomplicated; S93.05XA Dislocation of left ankle joint, initial encounter; Y84.8 Other medical procedures as the cause of abnormal reaction of the patient, or of later complication, without mention of misadventure at the time of the procedure; R91.8 Other nonspecific abnormal finding of lung field; S08.121A Partial traumatic amputation of right ear, initial encounter; R40.2412 Glasgow coma scale score 13-15, at arrival to emergency department; S01.312A Laceration without foreign body of left ear, initial encounter; F41.9 Anxiety disorder, unspecified; E78.00 Pure hypercholesterolemia, unspecified; M19.90 Unspecified osteoarthritis, unspecified site; S42.001A Fracture of unspecified part of right clavicle, initial encounter for closed fracture; N40.1 Benign prostatic hyperplasia with lower urinary tract symptoms; R33.8 Other retention of urine; E78.5 Hyperlipidemia, unspecified; V29.9XXA Motorcycle rider (driver) (passenger) injured in unspecified traffic accident, initial encounter; Y92.410 Unspecified street and highway as the place of occurrence of the external cause; Z87.820 Personal history of traumatic brain injury
CPT/HCPCS: 27810; 32405; 70450; 70486; 71045; 71260; 72125; 72129; 72132; 72170; 73030; 73590; 73600; 73610; 74177; 76000; 77012; 80048; 80076; 80307; 84484; 85025; 85610; 85730; 86850; 86900; 86901; 88305; 88341; 88342; 90471; 90715; 93005; 93306; 94150; 96374; 96375; 99291; C1713; C9113; G0390; J0131; J0690; J1100; J1650; J2060; J2250; J2270; J2370; J2405; J2710; J3010; J7030; J7120; Q9967